=== PATIENT | female | born 1960 ===

== ENCOUNTER → 2020-04-15 | Outpatient (CLI) | payer OTHER | LOC: WI 06:53 | PROVIDERS: ATTEND Nurse Practitioner Family | DX: Z12.31 Encounter for screening mammogram for malignant neoplasm of breast (principal) | CPT/HCPCS: 77067 ==

== ENCOUNTER → 2020-04-29 | Outpatient (CLI) | payer OTHER ==
--- NOTE | 2020-04-29 14:23 | WOMENS IMAGING REPORT ---
EXAM DESCRIPTION: RIGHT DIAGNOSTIC MAMMO W/CAD; U/S BREAST UNILAT LIMITED IMAGES COMPLETED DATE/TIME: 04/29/2020 1:34 pm; 04/29/2020 2:04 pm REASON FOR STUDY: R92.2 INCONCLUSIVE MAMMOGRAM; RT R92.2 R92.2 INCONCLUSIVE MAMMOGRAM COMPARISON: 04/17/2020 screening mammograms. EXAM PARAMETERS: Focal compression CC and MLO. Non spot compressed true lateral. Targeted breast u ltrasound. LIMITATIONS: None. FINDINGS: BREAST LATERALITY: Right MASSES: Distortion with ill-defined mass and suspicious calcifications persists. See ultrasound. CALCIFICATIONS: As above. ARCHITECTURAL DISTORTION: As above. ASYMMETRY: None noted. OTHER: No other significant findings. Ultrasound: Abnormality on ultrasound looks more extensive compared to the mammograms. At 10- 11 o' clock, irregular hypoechoic tissue corresponding to main mass measures approximately 4.1 cm in [place] l dimension. Ill-defined margins with infiltrative appearance. At approximately 9 o'clock, a 2nd si milar-appearing lesion which looks separate measures close to 3 cm. Again, irregular hypoechoic infi ltrative appearance. Imaging of the axilla shows 1 node which is sonographically normal. IMPRESSION: 1. Masses in the right breast. There appear to be 2 lesions based on ultrasound. These are amenable to ultrasound-guided core biopsy. BREAST DENSITY: b. There are scattered areas of fibroglandular density. BIRAD: ASSESSMENT: 5 Highly suggestive of malignancy. Biopsy should be performed in the absence of clinical contra-indication. RECOMMENDATION: RECOMMENDED FOLLOW UP: Birads 5: Biopsy should be performed in the absence of clinic al contraindication. SPECIFIC INTERVENTION/IMAGING/CONSULTATION RECOMMENDED:The suspicious finding(s) amenable to US guide d core/vacuum assisted biopsy. COMMUNICATION:I did not have the opportunity to fully review this study or discuss the findings with the patient at the time of her visit. Technologist referred the patient back to referring clinician for further management and results. COMMENT: The patient has been notified of the results by letter per MQSA requirements. Additional no tification policies are in place for contacting patient with suspicious or incomplete findings. Quality ID #225: The [employer] recommends an annual screening mammogram for women aged 40 years or over. This facility utilizes a reminder system to ensure that all patients receive reminder letters, and/or direct phone calls for appointments. This includes reminders for routine scr eening mammograms, diagnostic mammograms, or other Breast Imaging Interventions when appropriate. Th is patient will be placed in the appropriate reminder system. TECHNICAL DOCUMENTATION: FINDING NUMBER: (1) ASSESSMENT: (1) JOB ID: [id number] 2010 [employer]- All Rights Reserved Reading location - IP/workstation name: [email or web address]
== END ==
LOC: WI 13:15
PROVIDERS: ATTEND Nurse Practitioner Family
DX: R92.2 Inconclusive mammogram (principal)
CPT/HCPCS: 76642; 77065